=== PATIENT | male | born 1940 | race Caucasian/White ===

== ENCOUNTER 2017-01-31 21:42 | Emergency (ER) | payer BC ==
[~2017-01-31] VITALS: Ht 180.3 cm; Wt 101.1 kg
[2017-01-31] MEDS ORDERED: NORCO, ANEXSIA 5/325MG TABLET (HYDROcodone/ACETAMINOPHEN) PO ONE (22:45)
[2017-02-01] MEDS ORDERED: NORCOTAB PO (00:14)
[2017-02-01] MEDS ORDERED: NORCO 5/325MG TABLET (BULK FOR ED) PO ONE (00:15)
[2017-02-01 00:20] VITALS: BP 123/63
--- NOTE | 2017-02-01 01:38 | REP ---
Clinical: Trauma. Fall. Technique: Frontal view of the chest with multiple views of the right hemithorax. Findings: Frontal view of the chest demonstrates no acute cardiopulmonary process. Multiple views of the right hemithorax demonstrates nondisplaced anterolateral eighth and ninth rib fractures. Impression: 1. Right anterolateral eighth and ninth rib fractures. 2. Frontal view of the chest without consolidation/contusion, effusion or pneumothorax. Signed by Anthony Elam MD 02/01/2017 01:30 A
== END 2017-02-01 00:39 | disposition home or self-care (01) ==
LOC: M ED 21:42
DX: S22.41XA Multiple fractures of ribs, right side, initial encounter for closed fracture (principal); W01.10XA Fall on same level from slipping, tripping and stumbling with subsequent striking against unspecified object, initial encounter; Y92.019 Unspecified place in single-family (private) house as the place of occurrence of the external cause; Y93.89 Activity, other specified; Y99.8 Other external cause status